=== PATIENT | male | born 2005 | race Caucasian/White ===

== ENCOUNTER 2025-09-19 17:30 | Emergency (ER) | payer OTHER, SELFPAY ==
[2025-09-19 17:34] VITALS: BP 112/81
[2025-09-19 17:56] LABS: Hematocrit 46.2 % (39.0-52.0); Hemoglobin 16.1 g/dL (13.0-18.0); Mean Corp Hgb Conc. 34.8 g/dL (33.0-37.0); Mean Corpuscular Volume 90.4 fL (80.0-94.0); Nucleated Red Blood Cells % 0 % (-); Platelet Count 206 10^3/uL (130-400); Red Cell Dist. Width 11.3 % (11.5-14.5)
[2025-09-19] MEDS: PROTONIX IV 40 MG IV (18:27)
[2025-09-19] MEDS: ZOFRAN 4 MG IV (18:28)
--- NOTE | 2025-09-19 18:32 | ED.GENMED ---
History of Present Illness
General
Chief Complaint: Abdominal Pain
Source: patient
Exam Limitations: none
Time Seen by Provider: 09/19/25 18:08
History of Present Illness
History of Present Illness:
20 year old male presents with lower abdominal pain and intermittent nausea over the past 2 weeks. This is worse with eating. No vomiting or fever. No chest pain or shortness of breath. He states this started soon after starting a prednisone
course for bronchospasm. He also admits to taking ibuprofen regularly. He denies alcohol use or caffeine use. He does not smoke. No other complaints at this time.
Phy Exam
Physical Exam
Physical Exam:
General: Well-appearing male no acute respiratory distress HEENT: Normal cephalic atraumatic
Heart: Regular rate and rhythm lungs: Clear no wheeze
Extremities: No cyanosis
Abdomen soft mild diffuse tenderness no guarding nondistended
Course
Orders/Labs/Results
Orders:
Orders
09/19/25 17:49
Complete Blood Count/With Diff Urgent
Comprehensive Metabolic Panel Urgent
Lipase Urgent
09/19/25 18:22
CT Abd/pelvis W Iv Cont Urgent
Comment:
Reason For Exam: lower abdominal pain
Ondansetron Injectable [Zofran] 4 mg IV NOW STA
Pantoprazole [Protonix IV] 40 mg IV NOW STA
Abnormal Lab Results
09/19/25
17:49
MCH 31.5 H pg
(27.0-31.0)
RDW 11.3 L %
(11.5-14.5)
Absolute Monos (auto) 0.7 H 10^3/uL
(0.1-0.6)
Monocytes % 10.2 H %
(1.7-9.3)
Albumin 5.1 H g/dl
(3.5-5.0)
09/19/25 17:49
09/19/25 17:49
Vital Signs
Initial and Last Documented VS:
Initial Vital Signs
Temp Pulse Resp BP Pulse Ox
98.4 F 65 20 112/81 99
09/19/25 17:34 09/19/25 17:34 09/19/25 17:34 09/19/25 17:34 09/19/25 17:34
Last Documented Vital Signs
Temp Pulse Resp BP Pulse Ox
98.4 F 63 18 123/73 99
09/19/25 17:34 09/19/25 19:03 09/19/25 21:08 09/19/25 21:02 09/19/25 21:03
MDM/Problems Addressed
Differential Diagnosis Includes:
Nausea with adominal discomfort. Consider gastritis vs biliary colic vs viral illness
Check labs, give zofran and protonixc, ct ordered due to tenderness on exam.
*Pulse Oximetry
SaO2: 99
Patient hypoxic: no
*Critical Care Note
Total Time (30-74mins, 75-104mins- exclusive of procedures): Not Applicable
Update Note
Update Note:
CT negative for obvious acute finding. Patient symptoms worse but improved slightly with medication. Suspect possible gastritis. Recommend PPI and nausea medicine. GI referral made. Stable for discharge
ED Attending Note
-
Portions of this chart may have been created with voice recognition software.� Occasional wrong word or��sound alike� substitutions may have occurred due to the inherent limitations of voice recognition software.
Discharge Plan
Departure
Patient Disposition: Home (Routine Discharge)
Date of Disposition: 09/19/25
Time of Disposition: 21:57
Patient with high blood pressure during this ER visit?: No
Discharge Problem:
Nausea
Instructions: Nausea and Vomiting, Adult (DC), Gastritis (DC)
Prescriptions:
New
ondansetron 4 mg tablet,disintegrating
4 mg PO Q8H PRN (Reason: nausea and vomiting) Qty: 10 0RF
pantoprazole [Protonix] 40 mg tablet,delayed release (DR/EC)
40 mg PO DAILY Qty: 14 0RF
No Action
famotidine 20 mg Tablet
20 mg PO DAILY
montelukast 10 mg Tablet
10 mg PO HS
Referrals:
Michele Gordon MD [Family Provider]
Monica Khan DO [Active, Gastroenterology]
Activity Restrictions/Additional Instructions:
Eat a bland diet drink plenty of fluids. Use antacids as directed. Zofran if needed for nausea.
Interventions
Interventions:
*Risk Screen - Suicide Last Done: 09/19/25 17:34
*General Assessment Last Done: 09/19/25 17:34
*Neglect/Abuse Screening Last Done: 09/19/25 17:34
*ED- Fall Risk Assessment Last Done: 09/19/25 18:37
*ED COVID-19 Vaccine History Last Done: 09/19/25 18:37
*ED Influenza Vaccine History Last Done: 09/19/25 18:37
HT-Bclhrt-Hlyhjqgajb Assessment Last Done: 09/19/25 18:09
Discharge Date and Time
Print Language: SAUDI ARABIAN
[2025-09-19 18:33] LABS: ALT (SGPT) 16 U/L (0-50); AST (SGOT) 19 U/L (17-59); Albumin 5.1 g/dl (3.5-5.0); Alkaline Phosphatase 63 U/L (38-126); Blood Urea Nitrogen 18 mg/dl (9-20); Calcium 10.1 mg/dl (8.4-10.2); Carbon Dioxide 24 mmol/L (22-30); Chloride 105 mmol/L (98-107); Glucose 94 mg/dl (70-99); Lipase 70 U/L (23-300); Potassium 4.0 mmol/L (3.5-5.1); Sodium 138 mmol/L (135-145); Total Protein 7.8 g/dl (6.3-8.2); eGFR > 60.00
[2025-09-19 18:35] VITALS: BMI 16.8
[2025-09-19 19:03] VITALS: BP 119/67
[2025-09-19 21:02] VITALS: BP 123/73
== END 2025-09-19 22:09 | disposition home or self-care (01) ==
LOC: EMR 17:30
PROVIDERS: Emergency Medicine; EMERGENCY PHYSICIAN Emergency Medicine; FAMILY PHYSICIAN Family Medicine
DX: R11.0 Nausea (principal); R10.30 Lower abdominal pain, unspecified
CPT/HCPCS: 96374; 96375; 99284; 74177; 80053; 83690; 85025; Q9967